=== PATIENT | male | born 1960 | race Caucasian/White ===

== ENCOUNTER 2017-12-03 13:46 | Emergency (ER) | payer BC, OTHER ==
[2017-12-03] MEDS ORDERED: DECADRON IM ONE (17:14)
--- NOTE | 2017-12-03 17:18 | Emergency Department Report ---
ED Rash HPI - HPI Chief Complaint: Skin Rash Stated Complaint: RASH ALL OVER Time Seen by Provider: 12/03/17 16:38 Duration: 2 weeks Location: Upper Extremities (bilateral axilla), Lower Extremities (right lower extremity) Suspected Cause: Unknown Rash Symptoms: Yes Itching, No Facial Swelling, No Tongue/Oral Swelling, No Breathing Difficulties, No Choking Sensation, No Wheezing/Dyspnea, No Peeling, No Blistering, No Fever, No Lightheaded, No Malaise, No Myalgias Other History: This is a 56-year-old male who presents with rash to bilateral armpits and right lower extremity for 2 weeks. Patient states he had boils under both armpits which appear 1-2 weeks ago. Patient reports bumps and is painful and it just at 90. Patient states he has been using garlic and old male with no improvement of symptoms. He burst to the palms and right high which feel better today. 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 Patient denies fever, nausea or vomiting, swelling, insect bite, tongue swelling, drooling, difficulty swallowing, and chest pain. ED Review of Systems ROS: Stated complaint: RASH ALL OVER Other details as noted in HPI Constitutional: denies: chills, fever ENT: denies: ear pain, throat pain, congestion Respiratory: denies: cough, shortness of breath, wheezing Cardiovascular: denies: chest pain, palpitations Gastrointestinal: denies: abdominal pain, nausea, diarrhea Skin: lesions (multiple abscesses to bilateral axilla, a rash to right lower extremity). denies: rash Neurological: denies: headache, weakness, paresthesias Psychiatric: denies: anxiety, depression ED Past Medical Hx - Past Medical History Previous Medical History?: Yes Additional medical history: kidney stones - Surgical History Past Surgical History?: No - Social History Smoking Status: Never Smoker Substance Use Type: Alcohol - Medications Home Medications: Home Medications Medication Instructions Recorded Confirmed Last Taken Type Nystatin/Triamcin 15 gm TP BID #1 cream..g. 12/03/17 Unknown Rx [Nystatin-Triamcinolone Cream] Sulfamethoxazole/Trimethoprim 1 each PO BID #14 tablet 12/03/17 Unknown Rx [Bactrim DS TAB] hydrOXYzine PAMOATE [Vistaril] 25 mg PO Q6HR PRN #15 capsule 12/03/17 Unknown Rx Rash Exam - Exam General: Vital signs noted. No distress. Alert and acting appropriately. HEENT: No Periorbital Edema, No Conjuctival Injection, No Chemosis, No Perioral Edema, No Tongue Edema, No Uvular Edema, No Compromised Airway, No Drooling Lungs: Yes Good Air Exchange (Normal Breath Sounds), No Wheezes, No Ronchi, No Stridor, No Cough, No Labored Respirations, No Retractions, No Use of Accessory Muscles, No Other Abnormal Lung Sounds Heart: Yes Regular, No Murmur Skin: Yes Maculopapular Rash (right lower extremity), Yes Tenderness (bilateral axilla), Yes Erythema, No Urticarial Rash, No Morbilliform rash, No Bulla(e), No Excoriations, No Weeping, No Edema, No Encrustations, No Other (multiple 2-4 mm nodules, tender, erythema, nonfluctuant, to bilateral axilla) Other: Positive: Abdomen Normal, Neurologic Normal, Musculoskeletal Normal ED Course Vital Signs 12/03/17 13:50 Temperature 97.7 F Pulse Rate 87 Respiratory 20 Rate O2 Sat by Pulse 97 Oximetry ED Medical Decision Making - Medical Decision Making This is a 56 y.o. male presents with rash to RLE and abscess to bilateral axilla for 2 weeks. Patient examined by me and stable. No distress noted. Vitals stable. Patient given dexamethasone 8 mg IM once while in ER. Physical findings susceptible of contact dermatitis and abscess to bilateral axilla. Start bactrim, nystatin/triamcinolone, and vistaril. Patient will be treated for her abscesses and contact dermatitis with fungal coverage. Discussed plan with patient. Discharged home stable. Follow up with [facility] in 24-72 hours. Critical care attestation.: If time is entered above; I have spent that time in minutes in the direct care of this critically ill patient, excluding procedure time. ED Disposition Clinical Impression: Abscesses of both axillae Contact dermatitis Qualifiers: Contact dermatitis type: irritant Contact dermatitis trigger: unspecified trigger Qualified Code(s): L24.9 - Irritant contact dermatitis, unspecified cause Disposition: TO HOME OR SELFCARE Is pt being admited?: No Does the pt Need Aspirin: No Condition: Stable Instructions: Abscess (ED), Contact Dermatitis (ED) Additional Instructions: Apply a thin layer of nystatin/triamcinolone cream twice a day for 5-10 days. Complete full course of antibiotics as prescribed. Wash area twice a day prior to applying prescribed cream. Follow up with [facility] in 24-72 hours. Prescriptions: hydrOXYzine PAMOATE [Vistaril] 25 mg PO Q6HR PRN #15 capsule PRN Reason: Itching Nystatin/Triamcin [Nystatin-Triamcinolone Cream] 15 gm TP BID #1 cream..g. Sulfamethoxazole/Trimethoprim [Bactrim DS TAB] 1 each PO BID #14 tablet Referrals: [facility] [Outside] - 3-5 Days [facility] [Outside] - 3-5 Days [facility] [Outside] - 3-5 Days Time of Disposition: 17:25 Print Language: CITIZEN OF [place]
== END 2017-12-03 17:56 | disposition home or self-care (01) ==
LOC: ED 13:46
DX: L02.412 Cutaneous abscess of left axilla (principal); L02.411 Cutaneous abscess of right axilla; L24.9 Irritant contact dermatitis, unspecified cause; Z87.442 Personal history of urinary calculi
CPT/HCPCS: 96372; 99282; J1100

== ENCOUNTER 2019-01-18 00:18 | Emergency (ER) | payer OTHER ==
[2019-01-18 00:39] VITALS: BP 166/90
--- NOTE | 2019-01-18 01:31 | Emergency Department Report ---
ED Male HPI - General Chief complaint: Urogenital-Male Stated complaint: BLEEDING FROM TESTICLES/PRIVATE AREA Time Seen by Provider: 01/18/19 01:08 Source: patient Mode of arrival: Ambulatory Limitations: No Limitations - History of Present Illness Initial comments: This is a 58-year-old male nontoxic, well nourished in appearance, no acute signs of distress presents to the ED with c/o of testicular lesion after scratching the area. Patient denies any testicular pain or swelling. Denies any penile discharge. Patient denies any penile ulcers or lesions. Patient denies any nausea, vomiting, chest pain, shortness of breathe, fever, chills, headache, back pain, numbness, tingling, stiff neck. Patient denies any urinary symptoms. Patient denies any allergies or PMH. MD Complaint: other (testicler scratch) Location: right testicle Radiation: none Severity scale (0 -10): 0 Improves with: none Worsens with: none denies other symptoms. denies: discharge, swelling, mass, rash, urinary reten tion, blood in urine, dysuria, fever, nausea/vomiting, incontinence - Related Data Previous Rx's Medication Instructions Recorded Last Taken Type Nystatin/Triamcin 15 gm TP BID #1 cream..g. 12/03/17 Unknown Rx [Nystatin-Triamcinolone Cream] Sulfamethoxazole/Trimethoprim 1 each PO BID #14 tablet 12/03/17 Unknown Rx [Bactrim DS TAB] hydrOXYzine PAMOATE [Vistaril] 25 mg PO Q6HR PRN #15 capsule 12/03/17 Unknown Rx Sulfamethoxazole/Trimethoprim 1 each PO BID #14 tablet 01/18/19 Unknown Rx [Bactrim DS TAB] Allergies Allergy/AdvReac Type Severity Reaction Status Date / Time No Known Allergies Allergy Verified 06/28/14 04:34 ED Review of Systems ROS: Stated complaint: BLEEDING FROM TESTICLES/PRIVATE AREA Other details as noted in HPI Constitutional: denies: chills, fever Eyes: denies: eye pain, eye discharge, vision change ENT: denies: ear pain, throat pain Respiratory: denies: cough, shortness of breath, wheezing Cardiovascular: denies: chest pain, palpitations Endocrine: no symptoms reported Gastrointestinal: denies: abdominal pain, nausea, diarrhea Genitourinary: denies: urgency, dysuria Musculoskeletal: denies: back pain, joint swelling, arthralgia Skin: denies: rash, lesions Neurological: denies: headache, weakness, paresthesias Psychiatric: denies: anxiety, depression Hematological/Lymphatic: denies: easy bleeding, easy bruising ED Past Medical Hx - Past Medical History Previous Medical History?: No Additional medical history: kidney stones - Surgical History Past Surgical History?: No - Social History Smoking Status: Never Smoker Substance Use Type: None - Medications Home Medications: Home Medications Medication Instructions Recorded Confirmed Last Taken Type Nystatin/Triamcin 15 gm TP BID #1 cream..g. 12/03/17 Unknown Rx [Nystatin-Triamcinolone Cream] Sulfamethoxazole/Trimethoprim 1 each PO BID #14 tablet 12/03/17 Unknown Rx [Bactrim DS TAB] hydrOXYzine PAMOATE [Vistaril] 25 mg PO Q6HR PRN #15 capsule 12/03/17 Unknown Rx Sulfamethoxazole/Trimethoprim 1 each PO BID #14 tablet 01/18/19 Unknown Rx [Bactrim DS TAB] ED Physical Exam - General Limitations: No Limitations General appearance: alert, in no apparent distress - Head Head exam: Present: atraumatic, normocephalic - exam: Present: normal inspection. Absent: testicular tenderness, urethral discharge, vertical testicular lie, circumcision External exam: Present: lesions. Absent: erythema, swelling, lacerations, ecchymosis, bleeding - Extremities Exam Extremities exam: Present: normal inspection, full ROM - Back Exam Back exam: Present: normal inspection, full ROM. Absent: tenderness, CVA tenderness (R), CVA tenderness (L), muscle spasm, paraspinal tenderness, vertebral tenderness, rash noted - Neurological Exam Neurological exam: Present: alert, oriented X3, normal gait - Psychiatric Psychiatric exam: Present: normal affect, normal mood - Skin Skin exam: Present: warm, dry, intact, normal color. Absent: rash ED Course Vital Signs 01/18/19 00:33 Temperature 98.4 F Pulse Rate 88 Respiratory 18 Rate Blood Pressure 166/90 O2 Sat by Pulse 96 Oximetry - Reevaluation(s) Reevaluation #1: 01/18/19 01:32 Patient is speaking in full sentences with no signs of distress noted. ED Medical Decision Making - Medical Decision Making At time of discharge, the patient does not seem toxic or ill in appearance. No acute signs of distress noted. Patient agrees to discharge treatment plan of care. No further questions noted by the patient. Critical care attestation.: If time is entered above; I have spent that time in minutes in the direct care of this critically ill patient, excluding procedure time. ED Disposition Clinical Impression: Testicular lesion Disposition: [id number]-01 TO HOME OR SELFCARE Is pt being admited?: No Does the pt Need Aspirin: No Condition: Stable Additional Instructions: Follow-up with a primary care doctor in 3-5 days or if symptoms worsen and continue return to emergency room as soon as possible. Prescriptions: Sulfamethoxazole/Trimethoprim [Bactrim DS TAB] 1 each PO BID #14 tablet Referrals: PRIMARY CAREMD [Primary Care Provider] - 3-5 Days AYDE KAHN MD [Staff Physician] - 3-[address] [facility] [Outside] - 3-5 Days [facility] [Outside] - 3-5 Days Forms: Work/School Release Form(ED)
== END 2019-01-18 02:05 | disposition home or self-care (01) ==
LOC: ED 00:18
DX: N50.811 Right testicular pain (principal); Z79.899 Other long term (current) drug therapy
CPT/HCPCS: 99282